=== PATIENT | male | born 1985 | race Caucasian/White ===

== ENCOUNTER 2019-01-19 20:37 | Emergency (ER) | payer BC ==
[2019-01-19] MEDS: KETOROLAC 30 MG INJ IM (21:42)
== END 2019-01-19 23:06 | disposition home or self-care (01) ==
LOC: FTE 20:37
DX: S20.219A Contusion of unspecified front wall of thorax, initial encounter (principal); V00.831A Fall from motorized mobility scooter, initial encounter
CPT/HCPCS: 71046; 96372; 99284-25